=== PATIENT | male | born 1985 | race Two or more races ===

== ENCOUNTER 2022-12-15 11:27 | Emergency (ER) | payer SELFPAY ==
--- NOTE | ~2022-12-15 | XR_ITS ---
EXAMINATION: XR FEET, BILATERAL CLINICAL INFORMATION: Atraumatic bilateral plantar pain COMPARISON: None available. TECHNIQUE: Frontal, lateral and oblique radiographs of both feet were acquired. FINDINGS: There are no plain film osseous, articular or soft tissue abnormalities in either the left or right foot. No erosive or proliferative changes are evident. No fracture, dislocation or bone lesion is detected. XR/XR foot LT min 3V IMPRESSION: Normal bilateral feet.
--- NOTE | ~2022-12-15 | XR_ITS ---
EXAMINATION: XR FEET, BILATERAL CLINICAL INFORMATION: Atraumatic bilateral plantar pain COMPARISON: None available. TECHNIQUE: Frontal, lateral and oblique radiographs of both feet were acquired. FINDINGS: There are no plain film osseous, articular or soft tissue abnormalities in either the left or right foot. No erosive or proliferative changes are evident. No fracture, dislocation or bone lesion is detected. XR/XR foot RT min 3V IMPRESSION: Normal bilateral feet.
[2022-12-15 11:45] VITALS: BP 127/86; PULSE 94; RESP 18; TEMP 36.9; O2SAT 98; BMI 27.4
--- NOTE | 2022-12-15 11:47 | ED_ITS ---
HPI - Extremity Problem General Chief complaint: Extremity Injury, Lower Stated complaint: both feet in pain quest work related Time Seen by Provider: 12/15/22 13:06 Source: patient Mode of arrival: ambulatory Limitations: no limitations History of Present Illness HPI Narrative: 37-year-old male is here today for ongoing pain to his bilateral feet. Patient states that his both feet mainly heels are hurting him. 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 Patient denies any injury. Reports pins and needles like pain in his heels. X- ray done in triage. MD Complaint: extremity pain Onset (ago): day(s) Pain Consistency: constant Location: left and right Quality: burning and sharp Radiation: none Relieving factors: rest Exacerbating factors: walking Related Data Previous Rx's Medication Instructions Recorded acetaminophen 325 mg capsule 650 mg (2 x 325 mg) PO Q6H PRN 12/15/22 pain #20 caps Allergies Allergy/AdvReac Type Severity Reaction Status Date / Time ibuprofen Allergy Vomiting Verified 12/15/22 11:44 Review of Systems Review of Systems: Constitutional : No Weight loss, No Fever, No Chills, No Night Sweats, No Fatigue, No Malaise Cardiovascular : No Chest Pain, No SOB, Respiratory : No Cough, No Sputum, No Wheezing, No Smoke Exposure, No Dyspnea Gastrointestinal : No Nausea, No Vomiting, Genitourinary : no irregular bleeding, No Dysuria, No Urinary Frequency, No Hematuria, No Urinary Incontinence, No Urgency, No Flank Pain, No Urinary Flow Changes, No Hesitancy Musculoskeletal : No joint pain, No Myalgias, No Joint Swelling, bilateral foot pain Skin : No Skin Lesions, No rash Neuro : No Weakness, No Numbness, No Paresthesias, No Loss of Consciousness, No Dizziness, No Headache Psych : No Anxiety/Panic, No Depression, No SI/HI/AH/VH, No Social Issues, Yes all other systems are reviewed and are negative FORMERLY [facility], 1928–1983 Social History Social History Advance Directives: No Physical Exam Vital Signs: Vital Signs: Last Vital Signs Temp 98.4 F 12/15/22 11:45 Pulse 94 12/15/22 11:45 Resp 18 12/15/22 11:45 BP 127/86 12/15/22 11:45 Pulse Ox 98 12/15/22 11:45 O2 Del Method Room Air 12/15/22 11:45 BMI result Body Mass Index 27.4 Const: General: healthy appearing, no acute distress and well developed Nutritional Appearance: well nourished Orientation/consciousness: patient oriented x3 HEENT: Head: Yes normal to inspection, Yes normocephalic and Yes atraumatic Face and sinus: Yes normal facial exam Mouth: Normal oral and palatal mucosa present Throat: Yes posterior oropharynx normal, Yes tonsils normal and Yes uvula midline Eyes: General: appearance normal, both eyes and all related structures Neck: Neck: Yes normal visual inspection, Yes full ROM and Yes trachea midline Thyroid: Thyroid normal Resp: Effort & Inspection: normal respiratory effort, able to speak in complete sentences, no tracheal deviation and symmetric chest movement Auscultation: clear to auscultation bilaterally : General: Yes no CVA tenderness Back/Spine/Pelvis: Back: no CVA tenderness Skin: General skin exam: elasticity normal, turgor normal and dry skin Neuro: General: patient oriented x3 Extrem: General: Yes normal to inspection, Yes full ROM and Yes capillary refill normal Psych: Appearance: grossly normal Mental Status: mental status grossly normal Speech and movement: Normal speech and movement present Course Course Course Narrative: RME- 11:50AM 37yoM presenting to the ER with complaints of bilateral foot pain at the heel and extends into the arch/plantar aspect of bilateral feet. She reports that this started yesterday worsened today. Reports he got suspended from work due to ?taking too many breaks I guess?. Denies any injury that he is aware of. Denies any other symptoms complaints or concerns at this time. Plan: X-ray of bilateral feet patient is stable to go back to the waiting room to be evaluated in [facility]. H&P deferred to next provider. 37-year-old male is here today for ongoing pain to his bilateral feet. Patient states that his both feet mainly heels are hurting him. 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 Patient denies any injury. Reports pins and needles like pain in his heels. X- ray done in triage. Upon exam patient has mild tenderness to bilateral heels. Good CMS, no swelling. Patient is able to move bilateral extremity. Good range of motion. Medical Decision Making Medical Decision Making MDM Narrative: 37-year-old male is here today for ongoing pain to his bilateral feet. Patient states that his both feet mainly heels are hurting him. 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 Patient denies any injury. Reports pins and needles like pain in his heels. X- ray done in triage. Negative for any acute findings. Will send patient home to follow-up with his PCP. Differential Diagnosis Differential Diagnoses: The differential diagnosis associated with the presentation includes Plantar fasciitis, bone spur, foreign body Independent Interpretation I performed an independent interpretation of an: Plain X-Ray Radiology Impression Discussion of test interpretation with radiology: I have reviewed the radiologist's reading. Radiologist Impression: FINDINGS: There are no plain film osseous, articular or soft tissue abnormalities in either the left or right foot. No erosive or proliferative changes are evident. No fracture, dislocation or bone lesion is detected. XR/XR foot LT min 3V IMPRESSION: Normal bilateral feet. Discharge Plan Discharge Clinical Impression: Heel pain, bilateral Patient Disposition: Home, Self-Care Instructions: Arthralgia (ED) Additional Instructions: you were seen here today for Foot pain. X-rays are negative. Please so your feet in warm water couple times a day for 10-15 minutes. Please make sure that you wear comfortable shoes. Follow-up with your PCP in the next few days if your symptoms are getting worse. You may return to emergency department with any concerning symptoms. Prescriptions: New acetaminophen 325 mg capsule 650 mg PO Q6H PRN (Reason: pain) Qty: 20 0RF Stand Alone Forms: Work/School Release Interventions: ED Discharge Assessment Last Done: 12/15/22 13:57 Discharge Date/Time: 12/15/22 13:58
--- NOTE | 2022-12-15 12:34 | PC.NURSE ---
xrays obtained in triage, ambulating with steady gait to room
== END 2022-12-15 13:58 | disposition home or self-care (01) ==
PROVIDERS: Emergency Provider Emergency Medicine
DX: M79.671 Pain in right foot (principal); M79.672 Pain in left foot
CPT/HCPCS: 73630; 99282; 99283; 99284